=== PATIENT | male | born 1960 | race Caucasian/White ===

== ENCOUNTER 2022-04-17 13:39 | Emergency (ER) | payer OTHER ==
[~2022-04-17] VITALS: Ht 193 cm; Wt 127.0 kg
[2022-04-17 14:04] VITALS: BP_SYST 178
== END 2022-04-17 15:30 | disposition left against medical advice (07) ==
LOC: SED 13:39
DX: M54.50 Low back pain, unspecified (principal); M79.661 Pain in right lower leg; M79.662 Pain in left lower leg; Z53.21 Procedure and treatment not carried out due to patient leaving prior to being seen by health care provider